=== PATIENT | male | born 2000 | race Caucasian/White ===

== ENCOUNTER 2022-10-18 15:00 | Emergency (ER) | payer BC, SELFPAY ==
[2022-10-18 15:02] VITALS: BP 131/75; PULSE 67; RESP 18; TEMP 36.8; O2SAT 98; BMI 21.7
--- NOTE | 2022-10-18 15:11 | ED_ITS ---
Discharge Plan Disposition Patient Disposition: Home, Self-Care Condition: Good Prescriptions Prescriptions: New sulfamethoxazole-trimethoprim [Bactrim DS] 800-160 mg tablet 1 tab PO Q12H Qty: 20 0RF cephalexin 500 mg capsule 500 mg PO TID 10 Days Qty: 30 0RF Referrals Follow up/Referrals: Tatyana Ruiz [Primary Care Provider] - See instructions Swati Dimas DPM [Staff Physician] - See instructions Activity Restrictions/Add. Instructions Additional Instructions/Restrictions: Take all antibiotics as prescribed until gone Warm epsom salt soaks, gently pull back skin Schedule follow up with Dr Dimas Clinical Impressions Clinical Impression: Paronychia of great toe of left foot Instructions Patient Instructions: DI for Paronychia Discharge ED Provider: Christa Kunz [facility] [place] HPI General Stated complaint: LT foot ingrown toenal Time Seen by Provider: 10/18/22 15:48 History of Present Illness Provider Complaint: Left great toe is inflamed, red, swollen. Concern for ingrown toenail. Has had issues off and on for a few months. Painful and getting worse. Has not had prior treatment. Drains occasionally. Location: left and lower extremity Radiation: non-radiation Severity: moderate Relieving factors: none Exacerbating factors: none Associated symptoms: denies other symptoms Treatments prior to arrival: none Related Data Previous Rx's Medication Instructions Recorded cephalexin 500 mg capsule 500 mg PO TID 10 days #30 caps 10/18/22 sulfamethoxazole 800 1 tab PO Q12H #20 tabs 10/18/22 mg-trimethoprim 160 mg tablet (Bactrim DS) Allergies Allergy/AdvReac Type Severity Reaction Status Date / Time No Known Allergies Allergy Verified 10/18/22 15:19 [facility] Disclaimer: The information contained in this section may have been updated after the patient was seen, as this information can be updated by other users. Social History Smoking Status: Unknown if ever smoked alcohol intake: never current occupational status: employed Travel in the last 8 weeks: None ROS Obtained: Yes All systems reviewed & no additional complaints except as documented Integumentary/Breasts Skin/Breast: Reports as per HPI and Reports redness Physical Exam General General appearance: alert and in no apparent distress Chest Chest inspection: Present normal inspection and symmetric chest wall rise; Absent tenderness Respiratory Respiratory exam: Present normal lung sounds bilaterally; Absent respiratory distress Cardiovascular Cardiovascular exam: Present regular rate and normal rhythm; Absent JVD Extremities Exam Extremities exam: Present normal inspection, full ROM and normal capillary refill; Absent calf tenderness Expanded Lower Extremity Exam Left: Foot/toe exam: Present tenderness, swelling and erythema Back Exam Back exam: Present normal inspection; Absent tenderness Neurological Exam Neurological exam: Present alert and oriented X3 Psychiatric Psychiatric exam: Present normal affect and normal mood Skin Skin exam: Present warm, dry, intact and normal color Lymphatic Lymphatic Findings: no adenopathy Medical Decision Making Lawrence Inquiry Pt receiving controlled substance: No
[2022-10-18 15:56] VITALS: BP 131/75; PULSE 67; RESP 18; TEMP 36.8; O2SAT 98
== END 2022-10-18 15:57 | disposition home or self-care (01) ==
PROVIDERS: Emergency Provider Physician Assistant; PCP Internal Medicine
DX: L03.032 Cellulitis of left toe (principal)
CPT/HCPCS: 99204; 99212; G0463

== ENCOUNTER 2025-01-21 18:03 | Day surgery (SDC) | payer BC, SELFPAY ==
[2025-01-21] VITALS (11 sets, daily range): BP systolic 107–133; BP diastolic 57–87; PULSE 74–118; RESP 14–20; TEMP 36.4–36.8; O2SAT 97–100; BMI 20.3
--- NOTE | 2025-01-21 18:29 | XR_ITS ---
PROCEDURE INFORMATION: Exam: XR Abdomen Exam date and time: 01/21/2025 6:45 PM Age: 24 years old Clinical indication: Other: Foreign body in rectum TECHNIQUE: Imaging protocol: Radiologic exam of the abdomen. Views: 2 Views. Upright and supine views. Total images: 4 COMPARISON: CR XR ABDOMEN MIN 2V 01/21/2025 6:45 PM FINDINGS: Lungs: Included lung bases are clear. Gastrointestinal tract: Approximate 30 cm radiopaque nonmetallic foreign body within the rectum and sigmoid colon, measuring 7.5 cm in diameter. No ileus or bowel obstruction. No significant colonic stool burden. No dilated small bowel segments. Intraperitoneal space: No free intraperitoneal air. Organs: No organomegaly or pathologic calcifications. Bones/joints: Unremarkable for age. IMPRESSION: 30 x 7.5 cm rectal foreign body.
--- OUTSIDE RECORDS SUMMARY | 2025-01-21 18:32 | XMS_ITS ---
Author Organization Unknown ENCOUNTERS Encounter Performer Location Date Diagnosis Diagnosis Status Emergency [facility] [address] [place] [address] [id number] Pre Admit [facility] [address] [place] [address] [id number] Emergency [facility] [address] [place] [address] [id number] FUAD Pre Admit [facility] [address] [place] [address] [id number] *Note: Encounters from your own facility or health system may be excluded. Allergies, Adverse Reactions, Alerts Allergen Type Severity Identification Date Medications Name Date Quantity Days Supplied GPI Number
[2025-01-21] MEDS: diazePAM 10MG/2ML SYRINGE 5 MG IV (18:35)
[2025-01-21] MEDS: MORPHINE 4MG/ML SYRINGE 4 MG IV (18:36)
[2025-01-21] MEDS: ONDANSETRON 4MG/2ML VIAL 4 MG IV (18:36)
--- NOTE | 2025-01-21 18:41 | HMH.EDGENADL ---
Discharge Plan Disposition Patient Disposition: Admitted Condition: Fair Clinical Impressions Clinical Impression: Foreign body anus/rectum Discharge ED Provider: Yessy Slater Adult HPI General Chief complaint: Abdominal Pain Stated complaint: object stuck in cavity Time Seen by Provider: 01/21/25 18:20 Mode of Arrival: Ambulatory Source of Information: Patient and Parent(s) Description of Symptoms (Recalled from ER Triage Doc. by RN): patient presents with foreign object lodged into his rectum. patient has made attempts at home to retrieve object without success. he is very uncomfortable. History of Present Illness HPI narrative: Patient is a 24-year-old male with no significant past medical history who presented to the emergency department with a foreign object stuck in his rectum. Patient states that he was given a anal toy by a friend and he was doing anal play today and inserted into his rectum and patient states that he is unable to get it out. Patient states it is a large anal toy with different sized anal beads. Patient states that he tried to remove it himself without success. Patient states that he is having significant pain. Patient denies any medical problems, does not take any daily medications. Related Data Home Medications ?Medication ?Instructions ?Recorded ?Confirmed No Known Home Medications 11/24/24 11/24/24 Allergies Allergy/AdvReac Type Severity Reaction Status Date / Time No Known Allergies Allergy Verified 11/24/24 13:11 [facility] Disclaimer: The information contained in this section may have been updated after the patient was seen, as this information can be updated by other users. Medical History Hearing loss Impacted cerumen of both ears No significant medical problems Surgical History History of surgery on wrist History of tonsillectomy and adenoidectomy Social History (Updated 01/21/25 @ 20:38 by Gigi Moore CRNA) Smoking Status: Current some day smoker alcohol intake: never substance use type: denies use current occupational status: employed Travel in the last 8 weeks?: None Have you lived/traveled outside US in past 30 days?: No Contact w/someone who lives/traveled outside US past 30 days?: No Exposure to someone with infectious disease in past 14 days?: No Do you have a fever (greater than 100.4 F or 38 C)?: No Have you tested positive for COVID-19?: No Exposed to someone with COVID-19 in past 14 days?: No Do you have a sore throat?: No Do you have a cough?: No Do you have any weakness?: No Do you have any diarrhea?: No Are you experiencing any unusual bleeding?: No Do you have any muscle aches/pain?: No Do you have any abdominal pain?: No Are you experiencing loss of taste or smell?: No Other Medical History Have you received the Pneumonia Vaccine: No ROS Obtained: Yes All systems reviewed & no additional complaints except as documented and Yes Systems reviewed as appropriate & no additional complaints except as documented Physical Exam General General appearance: alert and in no apparent distress Head Head exam: atraumatic, normocephalic and normal inspection Eye Eye exam: Present normal appearance, PERRL and EOMI; Absent scleral icterus ENT ENT exam: Present normal exam and normal external ear exam Neck Neck exam: Present normal inspection and full ROM Chest Chest inspection: Present normal inspection and symmetric chest wall rise Respiratory Respiratory exam: Present normal lung sounds bilaterally; Absent respiratory distress or wheezes Cardiovascular Cardiovascular exam: Present regular rate, normal rhythm and normal heart sounds Abdominal Exam Abdominal exam: Present soft and distention; Absent tenderness, guarding or rebound Rectal Exam Rectal exam: Present other (rectal exam performed, unable to palpate foreign object in rectum) Extremities Exam Extremities exam: Present normal inspection and full ROM Back Exam Back exam: Present normal inspection and full ROM Neurological Exam Neurological exam: Present alert and oriented X3 Psychiatric Psychiatric exam: Present normal affect and normal mood Skin Skin exam: Present warm and dry Medical Decision Making Medical Records Medical records reviewed: Yes I reviewed the patient's medical records. Screening: Per USPSTF and CDC recommendations, given the prevalence of disease in our region, it is our hospital?s policy to screen for HIV and viral Hepatitis for all patients aged 18 and over and those with ongoing risk factors. Lawrence Inquiry Pt receiving controlled substance: No Lawrence was queried for this patient: No Vital Signs: 01/21/25 18:07 01/21/25 18:40 01/21/25 19:10 Temperature 98.2 F 97.9 F Temperature Source Oral Oral Pulse Rate 99 H Pulse Rate [Right Radial] 118 H 97 H Respiratory Rate 20 16 Blood Pressure 110/58 L Blood Pressure [Right Arm] 119/81 133/72 Blood Pressure Mean [Right Arm] 93 92 Blood Pressure Source [Right Arm] Automatic Cuff Automatic Cuff Blood Pressure Position [Right Arm] Sitting 02 Sat by Pulse Oximetry 98 99 97 Oxygen Delivery Method Room Air Room Air Room Air 01/21/25 19:49 Temperature 97.9 F Temperature Source Oral Pulse Rate 94 H Pulse Rate [Right Radial] Respiratory Rate 16 Blood Pressure 133/78 Blood Pressure [Right Arm] Blood Pressure Mean [Right Arm] Blood Pressure Source [Right Arm] Blood Pressure Position [Right Arm] 02 Sat by Pulse Oximetry Oxygen Delivery Method Room Air Lab Data Lab results reviewed: Yes I reviewed the patient's lab results. Lab Results 01/21/25 19:46: Blood Type O Positive, Antibody Screen Negative Orders (Tests/Meds): ED MEDICATIONS Discontinued Medications Generic Name Dose Route Start Last Admin Trade Name Freq PRN Reason Stop Dose Admin Diazepam 5 mg 01/21/25 18:30 01/21/25 18:35 Diazepam 10mg/2ml Syringe IV 01/21/25 18:31 5 mg ONCE ONE Administration Iopamidol 75 ml 01/21/25 19:07 01/21/25 19:08 Iopamidol-370 (76%);100ml Bottle IV 01/21/25 19:08 75 ml ONCE ONE Administration Morphine Sulfate 4 mg 01/21/25 18:29 01/21/25 18:36 Morphine 4mg/Ml Syringe IV 01/21/25 18:30 4 mg ONCE ONE Administration Ondansetron HCl 4 mg 01/21/25 18:29 01/21/25 18:36 Ondansetron 4mg/2ml Vial IV 01/21/25 18:30 4 mg ONCE ONE Administration Sodium Chloride 10 ml 01/21/25 19:07 01/21/25 19:08 Sodium Chloride 0.9% 10ml Syr (Rad Only) IV 02/20/25 19:06 10 ml NEEDED PRN Administration Maintain IV Site ORDERS Category Date Time Status Type and Screen Stat BBK 01/21/25 19:[address] abdomen pelvis w con Stat Cat Scan 01/21/25 18:51 Completed XR abdomen min 2V Stat Exams 01/21/25 18:29 Completed Medical Decision Narrative: Patient is a 24-year-old male with no significant past medical history who presented to the emergency department with a foreign object stuck in his rectum. On arrival, patient was hemodynamically stable with unremarkable vital signs. Differential includes but not limited to: Foreign object in rectum, perforation, anal laceration, bowel obstruction, amongst others. Rectal exam was performed and I was unable to palpate the foreign object. X-rays were obtained. X-ray was obtained which showed a 30 x 7.[address] scan was obtained to further evaluate the location of the foreign body. CT scan showed the foreign body above the anal sphincter. Given my inability to palpate the object on rectal exam, I felt the patient would warrant general surgery evaluation to remove the object. General surgery was consulted. Patient was taken to the operating room for object removal. Patient was given Valium and morphine for pain control. Critical Care Critical Care Time Critical Care Time: No
--- NOTE | 2025-01-21 18:51 | CT_ITS ---
PROCEDURE INFORMATION: Exam: CT Abdomen And Pelvis With Contrast Exam date and time: 01/21/2025 7:06 PM Age: 24 years old Clinical indication: Injury or trauma; Other: Foreign body; Swelling; Additional info: Evaluate for foreign body TECHNIQUE: Imaging protocol: Computed tomography of the abdomen and pelvis with contrast. Total images: 316 Radiation optimization: All CT scans at this facility use at least one of these dose optimization techniques: automated exposure control; mA and/or kV adjustment per patient size (includes targeted exams where dose is matched to clinical indication); or iterative reconstruction. Contrast material: ISOVUE; Contrast volume: 75 ml; Contrast route: IV; COMPARISON: CR XR ABDOMEN MIN 2V 01/21/2025 6:45 PM FINDINGS: Lungs: Lung bases are clear. Heart: Normal heart size. Liver: Normal. No mass. Gallbladder and biliary ducts: Normal. No calcified stones. No ductal dilation. Pancreas: Normal. No ductal dilation. Spleen: Calcified splenic granuloma. No splenomegaly. Adrenal glands: Normal. No mass. Kidneys and ureters: 2 mm right intrarenal calculus. Unremarkable left kidney. No hydronephrosis. Stomach and bowel: Unremarkable stomach and duodenum. Unremarkable small bowel. No ileus or bowel obstruction. Very large foreign body within the rectum and sigmoid colon, measuring approximately 30 cm in length with a maximal diameter of 7 cm; the base of the foreign body above the anal sphincter. The colon is otherwise unremarkable. Appendix: No evidence of appendicitis. Intraperitoneal space: Unremarkable. No free air. No significant fluid collection. Vasculature: Nonaneurysmal abdominal aorta. Major abdominal vessels enhance appropriately. Lymph nodes: Unremarkable. No enlarged lymph nodes. Urinary bladder: Unremarkable as visualized. Reproductive: Nonenlarged prostate. Bones/joints: Unremarkable. No acute fracture. Soft tissues: Unremarkable. IMPRESSION: 1. Very large foreign body within the rectum and sigmoid colon, measuring approximately 30 cm in length with a maximal diameter of 7 cm; the base of the foreign body above the anal sphincter. 2. Otherwise, no acute intra-abdominal process. 3. 2 mm nonobstructing right intrarenal calculus.
--- NOTE | 2025-01-21 18:55 | PC.NURSE ---
Dr Mcmahan paged per Dr Slater.
--- NOTE | 2025-01-21 18:56 | PC.NURSE ---
Dr Slater on phone with Martir at this time
[2025-01-21] MEDS: SODIUM CHLORIDE 0.9% 10ML SYR (RAD ONLY) 10 ML IV (19:08)
[2025-01-21] MEDS: IOPAMIDOL-370 (76%);100ML BOTTLE 75 ML IV (19:08)
--- NOTE | 2025-01-21 19:49 | EXP.GEN.HP ---
HPI HPI HPI: Patient is a 24-year-old male who presented to the emergency department this evening after he had sustained a foreign body in the rectum. Attempts to remove it at home or performed without success. He presented with some abdominal pelvic discomfort. Evaluation in the emergency department by the ER physician was unsuccessful in being able to palpate this. Surgery was consulted. In the interim he underwent CT scan. This revealed findings of a very large foreign body within the rectum and sigmoid colon measuring 30 cm in length with a maximal diameter of 7 cm. Base of the foreign body is above the anal sphincter. [facility] Disclaimer: The information contained in this section may have been updated after the patient was seen, as this information can be updated by other users. Medical History Hearing loss Impacted cerumen of both ears No significant medical problems Surgical History History of surgery on wrist History of tonsillectomy and adenoidectomy Social History Smoking Status: Current some day smoker alcohol intake: never current occupational status: employed Travel in the last 8 weeks?: None Have you lived/traveled outside US in past 30 days?: No Contact w/someone who lives/traveled outside US past 30 days?: No Exposure to someone with infectious disease in past 14 days?: No Do you have a fever (greater than 100.4 F or 38 C)?: No Have you tested positive for COVID-19?: No Exposed to someone with COVID-19 in past 14 days?: No Do you have a sore throat?: No Do you have a cough?: No Do you have any weakness?: No Do you have any diarrhea?: No Are you experiencing any unusual bleeding?: No Do you have any muscle aches/pain?: No Do you have any abdominal pain?: No Are you experiencing loss of taste or smell?: No Other Medical History Have you received the Pneumonia Vaccine: No Meds Home Medications and Allergies Home Medications ?Medication ?Instructions ?Recorded ?Confirmed ?Type No Known Home Medications 11/24/24 11/24/24 History New Prescriptions to Start Prescriptions: Allergies Allergy/AdvReac Type Severity Reaction Status Date / Time No Known Allergies Allergy Verified 11/24/24 13:11 Exam Data for Last 24 hours Vital signs and Labs for Last 24 Hours: Temp Pulse Resp BP Pulse Ox O2 Del Method 97.9 F 97 H 16 133/72 97 Room Air 01/21/25 19:10 01/21/25 19:10 01/21/25 19:10 01/21/25 19:10 01/21/25 19:10 01/21/25 19:10 I & O for Last 24 hours: Intake & Output 01/19/25 01/20/25 01/21/25 01/22/25 11:59 11:59 11:59 11:59 Weight 150 lb Constitutional Constitutional: no acute distress *Routine HEENT Exam Head: Present normocephalic Eye: Present EOMI and PERRL ENT: Present mucous membranes moist *Routine Neck Exam Neck: Present supple; Absent lymphadenopathy *Routine Respiratory Exam Respiratory: Present CTA bilaterally *Routine Cardiovascular Exam Cardiovascular: Present RRR *Routine Abdominal Exam Abdominal: Present soft; Absent tenderness Comments: Slightly distended. No peritonitis. *Routine Rectal Exam Rectal:: deferred *Routine Genitalia Exam Genitalia:: deferred *Routine Extremities Exam Extremities: Absent cyanosis, clubbing or edema *Routine Skin Exam Skin: Present warm; Absent rash *Routine Neurological Exam Neurological: Present alert and oriented X3 Assessment and Plan *Assessment and plan (1) Foreign body anus/rectum: Status: Acute Category: Medical Code(s): T18.5XXA - Foreign body in anus and rectum, initial encounter Plan Given the size and depth of the rectal foreign body this is likely not amenable to removal in the emergency department under sedation. Plan will be for exam under anesthesia under general anesthesia hopefully with the ability to extract the foreign body. I did explain to him that this could require colonoscopic intervention as well as if all else fails possibility of laparotomy and even colotomy with colostomy if indicated. He understands and agrees to proceed.
--- NOTE | 2025-01-21 20:37 | P.PNANES_ITS ---
[facility] Disclaimer: The information contained in this section may have been updated after the patient was seen, as this information can be updated by other users. Medical History Hearing loss Impacted cerumen of both ears No significant medical problems Surgical History History of surgery on wrist History of tonsillectomy and adenoidectomy Social History Smoking Status: Current some day smoker alcohol intake: never substance use type: denies use current occupational status: employed Travel in the last 8 weeks?: None [facility] Anesthesia Checklist Patient Identification Patient Identification: Verbal (Name & ) Structural Data Admitted From: Home Planned Operative Procedure/s: removal foreign body anus Consent for Planned Operative Procedure(s) Verified: Yes NPO Status Verified Time NPO: 00:00 Airway Assessment Mallampati Score:: Class II C-Spine Mobility Assessed: Yes TMJ Mobility Assessed: Yes Dentition: Good Dentition Neurological Assessment Level of Consciousness: Awake, Alert and Appropriate Anesthesia Plan Anesthesia Risk discussed: Yes Anesthesia Plan: Verified ASA Class: I Anesthesia Type: General
--- NOTE | 2025-01-21 20:38 | P.PNANES_ITS ---
[facility] Anesthesia Record Part I Anesthesia Record I Intake, IV Amount: 1,000 Hydration: Adequate Estimated blood loss (mL): 0 Urine output (mL): 0 Blood Pressure: 107/87 SaO2: 97 Pulse Rate: 101 Airway Patency: Patent Respiratory Rate: 14 Temperature: 97.5 F Patient is:: Awake and Stable Stable to PACU at:: 20:30
--- NOTE | 2025-01-22 10:31 | EXP.OP.NOTE ---
Date of procedure: 01/22/25 Pre-op Diagnosis:: Foreign body, rectum Post-op Diagnosis:: Same Procedure performed:: Exam under anesthesia with extraction of rectosigmoid foreign body Surgeon:: Baljit Mcmahan MD CHIEF BUILDING INSPECTOR:: Gigi Moore Anesthesia: GETA Estimated blood loss (mL): 1 Operative findings:: Large foreign body in the proximal rectum extending into the sigmoid colon Operative note:: Consent was obtained patient was taken to the operating room. He was positioned in a supine position. General anesthesia was induced. He was repositioned in lithotomy position. Digital examination was performed and the forein body was able to be palpated several centimeters in the proximal to mid rectum. [place] anoscope was inserted. With some difficulty the foreign body was visualized but not able to be grasped. Ultimately 2 fingers were inserted which allowed for grasping and extraction of the flange of the foreign body to the distal rectum. At this point bivalve anoscope was reinserted and clamp was used to grasp the edge of the flange. Anoscope was then removed and with extraction using the clamp and 2 fingers to the foreign body was able to be slowly extracted and withdrawn in its entirety. During the procedure there was no obvious bowel injury. Patient tolerated procedure well with no immediate complications. Condition: stable Disposition: PACU Complications:: None immediately apparent
--- NOTE | 2025-01-22 23:00 | EXP.ANES.CKL ---
[facility] Disclaimer: The information contained in this section may have been updated after the patient was seen, as this information can be updated by other users. Medical History Hearing loss Impacted cerumen of both ears No significant medical problems Surgical History History of surgery on wrist History of tonsillectomy and adenoidectomy Social History (Updated 01/21/25 @ 20:38 by Gigi Moore CRNA) Smoking Status: Current some day smoker alcohol intake: never substance use type: denies use current occupational status: employed Travel in the last 8 weeks?: None [facility] Anesthesia Checklist Patient Identification Patient Identification: Verbal (Name & ) Structural Data Admitted From: Home Planned Operative Procedure/s: labor epidural Consent for Planned Operative Procedure(s) Verified: Yes Airway Assessment Mallampati Score:: Class II C-Spine Mobility Assessed: Yes TMJ Mobility Assessed: Yes Dentition: Good Dentition Neurological Assessment Level of Consciousness: Awake, Alert and Appropriate Anesthesia Plan Anesthesia Risk discussed: Yes Anesthesia Plan: Verified ASA Class: II Anesthesia Type: Epidural
[2025-01-23 14:45] VITALS: BP 126/74; PULSE 78; RESP 16; TEMP 36.4; O2SAT 99
--- NOTE | 2025-01-23 14:45 | EXP.ANES.II ---
[facility] Anesthesia Record Part II Anesthesia Record Part II Discharge Time: 21:16 Destination: Surgical Day Care (OP Surgery) PACU nurse assessment reviewed?: Yes Patient Condition:: Good Anesthesia Complications:: None Swallowing reflex intact?: Yes Airway Patency: Patent Cyanosis?: No Blood Pressure: 126/74 SaO2: 99 Respiratory Rate: 16 Pulse Rate: 78 Temperature: 97.5 F Mental Status: Alert & Oriented Pain level:: 0 Nausea and/or vomitting:: None Intake, IV Amount: 0 Hydration: Adequate
== END 2025-01-21 21:20 | disposition home or self-care (01) ==
LOC: ER 19:15 → SDC 19:52
PROVIDERS: Surgery; Emergency Provider Student in an Organized Health Care Education/Training Program; PCP Internal Medicine; Visit Provider Internal Medicine Adolescent Medicine
DX: T18.5XXA Foreign body in anus and rectum, initial encounter (principal); W44.8XXA Other foreign body entering into or through a natural orifice, initial encounter; Z72.0 Tobacco use
CPT/HCPCS: 46608; 74019; 74177; 86850; 99285; J1596; J2003; J2250; J2270; J2405; J2704; J2710; J3010; J3360; Q9967